=== PATIENT | female | born 1970 | race Caucasian/White ===

== ENCOUNTER 2019-04-02 08:16 | Day surgery (SDC) | payer OTHER ==
[2019-04-01 15:46] VITALS: BMI 21.2
[2019-04-02 10:30] VITALS: PULSE 72
[2019-04-02 10:31] VITALS: BP 110/72; TEMP 98
== END 2019-04-02 10:20 | disposition home or self-care (01) ==
LOC: JASU-ENDO 08:16
PROVIDERS: ATTEND Internal Medicine Gastroenterology
PROC: 0DJD8ZZ Inspection of Lower Intestinal Tract, Via Natural or Artificial Opening Endoscopic (ICD-10-PCS; principal; 2019-04-02 09:30)
DX: Z12.11 Encounter for screening for malignant neoplasm of colon (principal); K64.8 Other hemorrhoids; Z85.038 Personal history of other malignant neoplasm of large intestine